=== PATIENT | female | born 1960 | race African-American/Black ===

== ENCOUNTER 2017-06-15 10:44 | Outpatient (CLI) | payer OTHER | END 2017-06-15 10:45 | disposition home or self-care (01) | LOC: BICMAMMO 10:44 | PROVIDERS: ATTEND Family Medicine | DX: Z12.31 Encounter for screening mammogram for malignant neoplasm of breast (principal) | CPT/HCPCS: 77063; 77067 ==

== ENCOUNTER 2017-10-02 17:38 | Emergency (ER) | payer OTHER | END 2017-10-02 18:34 | disposition home or self-care (01) | LOC: ERS 17:38 | DX: S16.1XXA Strain of muscle, fascia and tendon at neck level, initial encounter (principal); M54.12 Radiculopathy, cervical region; I10 Essential (primary) hypertension; F32.9 Major depressive disorder, single episode, unspecified; V43.52XA Car driver injured in collision with other type car in traffic accident, initial encounter; Z79.899 Other long term (current) drug therapy | CPT/HCPCS: 99283 ==

== ENCOUNTER 2018-08-21 12:21 | Outpatient (CLI) | payer OTHER ==
--- NOTE | 2018-08-21 13:11 | MMO ---
Bilateral MAMMO Bilat Screen [facility]. CLINICAL HISTORY: Patient is 57 years old and is seen for screening. The patient has no family history of breast cancer. The patient has no personal history of cancer. VIEWS: The views performed were: bilateral craniocaudal with tomosynthesis and bilateral mediolateral oblique with tomosynthesis. FILMS COMPARED: The present examination has been compared to prior imaging studies performed at [facility] on 05/08/2003, 05/26/2004, 08/02/2005, 05/31/2012 and 06/15/2017. MAMMOGRAM FINDINGS: The breasts are heterogeneously dense, which could obscure a lesion on mammography. There is a stable nodule seen in the right breast. There are no suspicious masses, suspicious calcifications, or new areas of architectural distortion. IMPRESSION: THERE IS NO MAMMOGRAPHIC EVIDENCE OF MALIGNANCY. A ROUTINE FOLLOW-UP MAMMOGRAM IN 1 YEAR IS RECOMMENDED. THE RESULTS OF THIS EXAM WERE SENT TO THE PATIENT. ACR BI-RADS Category 2 - Benign finding MAMMOGRAPHY NOTE: 1. A negative mammogram report should not delay a biopsy if a dominant of clinically suspicious mass is present. 2. Approximately 10% to 15% of breast cancers are not detected by mammography. 3. Adenosis and dense breasts may obscure an underlying neoplasm.
== END 2018-08-21 12:22 | disposition home or self-care (01) ==
LOC: BICMAMMO 12:21
PROVIDERS: ATTEND Family Medicine
DX: Z12.31 Encounter for screening mammogram for malignant neoplasm of breast (principal)
CPT/HCPCS: 77063; 77067

== ENCOUNTER 2019-01-07 14:12 | Outpatient (CLI) | payer OTHER ==
--- NOTE | 2019-01-07 14:36 | RAD ---
Right shoulder 2 views HISTORY: Right shoulder pain. FINDINGS: Acromioclavicular and glenohumeral alignment are maintained. Minimal osteophytosis. Joint s paces preserved. No acute fracture, dislocation, or aggressive osseous erosions. IMPRESSION: Normal exam
--- NOTE | 2019-01-07 14:37 | RAD ---
Left shoulder 2 views HISTORY: Left shoulder pain. FINDINGS: Acromioclavicular and glenohumeral alignment are maintained. Joint spaces preserved. No acu te fracture, dislocation, or aggressive osseous erosions. Mild osteophytosis. Small subcortical cyst at the distal clavicle and base of the greater tuberosity. IMPRESSION: Mild osteoarthritic changes.
== END 2019-01-07 14:13 | disposition home or self-care (01) ==
LOC: BICRAD 14:12
PROVIDERS: ATTEND Family Medicine
DX: M25.512 Pain in left shoulder (principal); M25.511 Pain in right shoulder; G89.29 Other chronic pain; M19.012 Primary osteoarthritis, left shoulder

== ENCOUNTER 2020-02-17 13:29 | Outpatient (CLI) | payer OTHER ==
--- NOTE | 2020-02-17 14:26 | RAD ---
XR Lumbar Spine 2 Or 3 View HISTORY: Sciatica COMPARISON: None. FINDINGS: The vertebral body heights are maintained. No fracture, subluxation or bony destruction is seen.
--- NOTE | 2020-02-17 14:26 | RAD ---
XR Hip Rt 2-3 View HISTORY: Right hip pain FINDINGS: No fracture or dislocation is identified. Minimal degenerative changes are present.
== END 2020-02-17 13:30 | disposition home or self-care (01) ==
LOC: BICRAD 13:29
PROVIDERS: ATTEND Family Medicine
DX: M25.551 Pain in right hip (principal); M54.30 Sciatica, unspecified side
CPT/HCPCS: 72100

== ENCOUNTER 2020-08-05 13:06 | Outpatient (CLI) | payer OTHER | END 2020-08-05 13:07 | disposition home or self-care (01) | LOC: BICMAMMO 13:06 | PROVIDERS: ATTEND Family Medicine | DX: Z12.31 Encounter for screening mammogram for malignant neoplasm of breast (principal); Z13.820 Encounter for screening for osteoporosis; Z78.0 Asymptomatic menopausal state; M85.89 Other specified disorders of bone density and structure, multiple sites | CPT/HCPCS: 77063; 77067; 77080 ==

== ENCOUNTER 2021-08-09 12:57 | Outpatient (CLI) | payer OTHER | END 2021-08-09 12:58 | disposition home or self-care (01) | LOC: BICMAMMO 12:57 | PROVIDERS: ATTEND Family Medicine | DX: Z12.31 Encounter for screening mammogram for malignant neoplasm of breast (principal) | CPT/HCPCS: 77063; 77067 ==

== ENCOUNTER 2023-10-20 17:27 | Emergency (ER) | payer BC, OTHER ==
[2023-10-20 18:28] LABS: #Basophils 0.08 10x3/uL (0.0-0.2); %Basophils 1.2 % (0.0-1.0); %Eosinophils 6.1 % (0.0-10.0); %Lymphocytes 44.6 % (21.0-51.0); %Monocytes 6.7 % (0.0-10.0); %Neutrophils 41.1 % (42.0-75.0); Hematocrit 37.3 % (36.0-47.0); Hemoglobin 12.7 g/dL (12.0-16.0); Mean Platelet Volume 9.9 fL (7.4-10.4); Platelet Count 296 10x3/uL (130-400); RBC Distribution Width 12.7 % (11.5-14.5)
[2023-10-20 18:39] LABS: ALT (SGPT) 16 U/L (8-55); AST (SGOT) 17 U/L (5-34); Albumin 3.9 g/dL (3.4-4.8); Alkaline Phosphatase 69 U/L (40-110); Anion Gap 15 mmol/L (10-20); BUN (Urea Nitrogen) 18 mg/dL (9.8-20.1); Bilirubin, Total 0.4 mg/dL (0.2-1.2); CK (CPK) 173 U/L (29-168); Calc. Creatinine Clearance 0 mL/min (70-130); Calcium 9.8 mg/dL (7.8-10.44); Carbon Dioxide 20 mmol/L (23-31); Chloride 108 mmol/L (98-107); Estimated GFR 36; Globulin 3.3 g/dL (2.4-3.5); Glucose 169 mg/dL (80-115); Lipase 22 U/L (8-78); Potassium 3.8 mmol/L (3.5-5.1); Protein, Total 7.2 g/dL (5.8-8.1); Sodium 139 mmol/L (136-145)
[2023-10-20 18:41] LABS: Troponin I Less than 0.010 ng/mL (< 0.028)
[2023-10-20 19:30] LABS: Influenza A by NAA Not Detected (NotDetected); Influenza B by NAA Not Detected (NotDetected); SARS-CoV-2 NAA Rapid Test Not Detected (NotDetected)
[2023-10-20 22:01] LABS: Lactic Acid 1.1 mmol/L (0.5-2.2)
== END 2023-10-20 22:47 | disposition home or self-care (01) ==
LOC: ERS 17:27
DX: R55 Syncope and collapse (principal); J18.9 Pneumonia, unspecified organism; I10 Essential (primary) hypertension; Z87.891 Personal history of nicotine dependence; Z79.899 Other long term (current) drug therapy
CPT/HCPCS: 36415; 71045; 80053; 82550; 83605; 83690; 84146; 84484; 85025; 87040; 93005; 96361; 96365

== ENCOUNTER 2023-11-01 12:33 | Outpatient (CLI) | payer BC, OTHER | END 2023-11-01 12:34 | disposition home or self-care (01) | LOC: SCSMRI 12:33 | PROVIDERS: ATTEND Family Medicine | DX: R55 Syncope and collapse (principal); R56.9 Unspecified convulsions; G44.89 Other headache syndrome; R90.82 White matter disease, unspecified | CPT/HCPCS: 70553 ==

== ENCOUNTER 2024-01-11 12:51 | Outpatient (CLI) | payer BC, OTHER | END 2024-01-11 12:52 | disposition home or self-care (01) | LOC: EEG 12:51 | PROVIDERS: ATTEND Psychiatry & Neurology Neurology | DX: R56.9 Unspecified convulsions (principal) | CPT/HCPCS: 95816 ==